=== PATIENT | female | born 1955 | race Caucasian/White ===

== ENCOUNTER 2017-05-03 06:21 | Emergency (ER) | payer MEDICARE, OTHER ==
[~2017-05-03] VITALS: Ht 152.4 cm; Wt 72.0 kg
[~2017-05-03 06:21] MED LIST: INSULIN 70/30; METO-448; MTF1000T; SIMV20TA2; [UNRECOGNIZED DRUG - CODE]
[2017-05-03 06:24] VITALS: Ht 152.4 cm; Wt 72.0 kg
[2017-05-03] MEDS ORDERED: SOD CHLORIDE 0.9% 1,000 ML IV STA (06:40)
[2017-05-03] MEDS ORDERED: ALBUTEROL 0.083% (NEB) 2.5 MG/3 ML AMP NEB STA ×2 (06:40→10:55)
[2017-05-03] MEDS ORDERED: IPRATROPIUM (NEB) 0.5 MG/2.5 ML AMP NEB STA ×2 (06:40→10:55)
--- NOTE | 2017-05-03 06:45 | ERD ---
ER Documentation Chief Complaint Date/Time DATE: 05/03/17 TIME: 06:42 Chief Complaint sob x 2 days HPI This is a 61-year-old female with a known history of insulin-dependent diabetes mellitus hypertension and high cholesterol that presents to the emergency department complaining of intermittent shortness of breath for the past 48 hours. The patient indicates she has had a tactile fever with shaking chills. She took Tylenol at 5 PM roughly 13 hours prior to arrival. Since then she states that the fever has resolved. She denies any night sweats or weight loss. She has had a nonproductive cough and smokes tobacco roughly 10 cigarettes a day. She indicates that yesterday evening while sleeping at roughly 10 PM she was awoken with more worsening shortness of breath while lying supine. She stated that her shortness of breath improved when she sat up. She has also been experiencing pleuritic chest pain but denies any chest pressure that radiates to the neck arm back or jaw. She denies any recent travel or prolonged immobilization. She denies any swelling of her lower extremities and no calf tenderness or muscle spasms. She denies any abdominal pain. She denies any emesis or diarrhea. ROS All systems reviewed and are negative except as per history of present illness. Medications Home Meds Reported Medications Insulin Glargine* (Lantus*) 100 Unit/Ml Soln, 50 UNIT SC QAM, #1 VIAL 05/03/17 Simvastatin (Simvastatin) 20 Mg Tablet, 20 MG PO QHS, #30 TAB 05/03/17 Aspirin* (Aspirin* Chew) 81 Mg Tab.chew, 81 MG PO DAILY, TAB.CHEW 05/03/17 Metoprolol Tartrate* (Lopressor*) 25 Mg Tab, 25 MG PO BID, #60 TAB 05/03/17 Discontinued Reported Medications Famotidine (Famotidine) 1 Gm Powder 03/31/14 Simvastatin (Simvastatin) 20 Mg Tablet 03/31/14 Metoprolol Tartrate* (Lopressor*) 25 Mg Tab 03/31/14 [Insulin 70/30] No Conflict Check 03/31/14 Metformin* (Glucophage*) 1,000 Mg Tablet 03/31/14 Allergies Allergies: Coded Allergies: No Known Allergy (Unverified , 03/31/14) PMhx/Soc Hx Cardiac Disorders: Yes (HTN) Hx Miscellaneous Medical Probl: Yes (DM) Hx Alcohol Use: No Hx Substance Use: No Hx Tobacco Use: No Physical Exam Vitals Vital Signs Date Time Temp Pulse Resp B/P Pulse Ox O2 Delivery O2 Flow Rate FiO2 05/03/17 09:17 84 29 146/62 99 Room Air 05/03/17 07:01 100 18 96 21 05/03/17 06:57 80 24 131/62 97 Room Air 05/03/17 06:24 99.2 84 18 130/60 97 Physical Exam Constitutional:Well-developed. Well-nourished. HEENT:Normocephalic. Atraumatic.Pupils were equal round reactive to light. Moist mucous membranes.No tonsillar exudates. Neck: No nuchal rigidity. No lymphadenopathy. No posterior cervical spine tenderness or step-offs. Respiratory: Not using accessory muscles of respiration.Lungs were clear to auscultation bilaterally. No rhonchi. No rales. Mild wheezing bilaterally on end auscultation Cardiovascular: Regular rate regular rhythm.No murmurs. No rubs were appreciated.S1, S2 normal. Distal pulses are palpable 2+ bilaterally. GI: Abdomen was soft. Nontender. Non Distended. No pulsatile abdominal masses or bruits. No rebound. No guarding. Bowel sounds were present and normal. Muscle skeletal: Full range of motion of both the upper and lower extremities bilaterally.Normal muscle tone.No assymetrical calf tenderness or swelling. Skin: No petechia, no purpura. No lesions on the palms or the soles of the feet. No maculopapular rash. NEURO: Patient was alert, awake, orientated x3.No facial droop. Gait observed and normal with no ataxia.Speech had regular rate and rhythm. No focal neurological deficits. Result Diagram: 05/03/17 0700 05/03/17 0700 Results 24 hrs Laboratory Tests Test 05/03/17 07:00 05/03/17 09:09 White Blood Count 15.510^3/ul Red Blood Count 4.9110^6/ul Hemoglobin 13.1g/dl Hematocrit 40.1% Mean Corpuscular Volume 81.7fl Mean Corpuscular Hemoglobin 26.7pg Mean Corpuscular Hemoglobin Concent 32.7g/dl Red Cell Distribution Width 13.3% Platelet Count 68971^3/UL Mean Platelet Volume 10.8fl Neutrophils % 83.5% Lymphocytes % 9.4% Monocytes % 6.4% Eosinophils % 0.0% Basophils % 0.2% Nucleated Red Blood Cells % 0.0/100WBC Neutrophils # (Manual) 12.910^3/ul Lymphocytes # 1.510^3/ul Monocytes # 1.010^3/ul Eosinophils # 0.010^3/ul Basophils # 0.010^3/ul Nucleated Red Blood Cells # 0.010^3/ul Prothrombin Time 13.8Sec Prothrombin Time Ratio 1.1 INR International Normalized Ratio 1.06 Activated Partial Thromboplast Time 36.0Sec D-Dimer 1906.38ng/ml D-Dimer Comment Sodium Level 138mmol/L Potassium Level 4.2mmol/L Chloride Level 98mmol/L Carbon Dioxide Level 24mmol/L Anion Gap 20 Blood Urea Nitrogen 15mg/dl Creatinine 0.80mg/dl Glucose Level 297mg/dl Calcium Level 8.7mg/dl Total Bilirubin 0.2mg/dl Direct Bilirubin 0.00mg/dl Indirect Bilirubin 0.2mg/dl Aspartate Amino Transf (AST/SGOT) 34IU/L Alanine Aminotransferase (ALT/SGPT) 46IU/L Alkaline Phosphatase 162IU/L Creatine Kinase 38IU/L Creatine Kinase Index 0.6 Creatinine Kinase MB (Mass) < 0.22ng/ml Troponin I < 0.012ng/ml B-Type Natriuretic Peptide 286PG/ML Total Protein 7.5g/dl Albumin 3.6g/dl Globulin 3.90g/dl Albumin/Globulin Ratio 0.92 Urine Color YELLOW Urine Clarity SLIGHTLY CLOUDY Urine pH 6.0 Urine Specific [place] 1.022 Urine Ketones 1+mg/dL Urine Nitrite POSITIVEmg/dL Urine Bilirubin NEGATIVEmg/dL Urine Urobilinogen 1+mg/dL Urine Leukocyte Esterase 2+Priscilla/ul Urine Microscopic RBC 5/HPF Urine Microscopic WBC 59/HPF Urine Squamous Epithelial Cells FEW/HPF Urine Bacteria FEW/HPF Urine Hemoglobin 2+mg/dL Urine Glucose 3+mg/dL Urine Total Protein 1+mg/dl Current Medications Medications (Trade) Dose Ordered Sig/Vitaliy Route PRN Reason Start Time Stop Time Status Last Admin Dose Admin Sodium Chloride (NS) 1,000 ml @ 1,000 mls/hr Q1H STAT IV 05/03/17 06:40 05/03/17 07:39 DC 05/03/17 07:07 Albuterol (Proventil 0.083% (Neb)) 5 mg ONCE STAT NEB 05/03/17 06:40 05/03/17 06:42 DC 05/03/17 06:52 Ipratropium [place] (Atrovent 0.02% (Neb)) 0.5 mg ONCE STAT NEB 05/03/17 06:40 05/03/17 06:42 DC 05/03/17 06:52 Methylprednisolone Sodium Succinate (Solu-Medrol) 125 mg ONCE ONCE IV 05/03/17 08:30 05/03/17 08:31 DC 05/03/17 08:32 IV Flush 10 ml 10 ml STK-MED ONCE .ROUTE 05/03/17 09:11 05/03/17 09:12 DC 05/03/17 09:35 Sodium Chloride 100 ml @ ud STK-MED ONCE .ROUTE 05/03/17 09:11 05/03/17 09:12 DC 05/03/17 09:35 Iohexol (Omnipaque) 100 ml @ ud STK-MED ONCE .ROUTE 05/03/17 09:11 05/03/17 09:12 DC 05/03/17 09:36 Albuterol (Proventil 0.083% (Neb)) 5 mg ONCE STAT NEB 05/03/17 10:55 05/03/17 10:57 DC Ipratropium [place] 0.5 mg 0.5 mg ONCE STAT NEB 05/03/17 10:55 05/03/17 10:57 DC Ceftriaxone Sodium (Rocephin) 50 ml @ 100 mls/hr ONCE ONCE IVPB 05/03/17 11:30 05/03/17 11:59 DC 05/03/17 12:04 Ketorolac Tromethamine (Toradol) 30 mg ONCE STAT IV 05/03/17 11:40 05/03/17 11:41 DC 05/03/17 12:04 Procedures/MDM The patient presented to the emergency department with shortness of breath. My differential diagnosis included but was not limited to upper airway obstruction , CHF, pulmonary embolism, cardiac ischemia, pneumonia, pneumothorax, anemia, drug overdose, pulmonary edema, COPD or asthma. The patient had IV access established by nursing staff was placed on a maintenance helper continuous pulse oximetry. The patient received a liter bolus of 0.9 normal saline. She was refusing any analgesic medication. She was given nebulizer treatments of albuterol and Atrovent. I did feel her symptoms could be exacerbated by an acute bronchitis and therefore she received IV Solu- Medrol. Chest radiograph showed atelectasis with no evidence of pneumonia. The patient had leukocytosis. 12 Lead EKG tracing ordered and reviewed by myself showed: Normal sinus rhythm of 74 bpm and no arrhythmia. TX interval normal. QRS duration normal. No ST segment elevation No ST segment depression. No changes consistent with acute ischemia. The patient also had hyperglycemia without ketosis. She has a known history of ske-evpxmho-rgoittqgu diabetes mellitus and was given IV fluids to correct the hyperglycemia The patient was a low pretest probability according to the well's criteria for pulmonary embolism. Therefore obtained a d-dimer.This was elevated and therefore obtained a CT angiogram which showed no evidence of pulmonary embolism. However I did appear to be some stranding of the kidneys consistent with pyelonephritis. The patient had a significant urinary tract infection. Given her symptoms she was treated for pyelonephritis given IV ceftriaxone. For pain the patient was given Toradol. She was also given a liter bolus of normal saline. I spoke with the patient at length about the possibility of being admitted for further IV antibiotics but she stated she would prefer to be discharged home as her partner is a nurse and she felt confident that she would be able to monitor for signs and symptoms that would warrant emergent return to the emergency department. The patient will be sent home with ciprofloxacin and Motrin for analgesic control. CT scan also showed emphysema which could have exacerbated her symptoms the patient had been treated in the emergency department for acute bronchitis. The patient was discharged home in fair condition. They were instructed to return to the emergency department at any time if there was any worsening of their condition. The patient stated they would follow up with their PCP in the next 24-48 hours to initiate a suitable medication regimen under the care of their PCP as well as to allow their PCP to monitor any drug reactions. The patient was discharged home with prescriptions after they gave informed consent to the new medication. They were also fully informed by myself on the adverse effects and adverse drug interactions in order to provide adequate safeguards to prevent possible adverse reactions to medications. Departure Diagnosis: Primary Impression: Acute bronchitis Bronchitis organism: unspecified organism Qualified Code: J20.9 - Acute bronchitis, unspecified organism Additional Impressions: Hyperglycemia without ketosis Pyelonephritis Condition: FLOR Thorne May 03, 2017 06:45
--- NOTE | 2017-05-03 07:06 | RADRPT ---
PROCEDURE: CHEST - 1 VIEW CLINICAL INDICATION: 61-year-old female with chest pain. TECHNIQUE: A single frontal AP portable view of the chest was performed. The images were reviewed on a PACS workstation. COMPARISON: None. FINDINGS: The cardiomediastinal silhouette is within normal limits. There is a shallow inspiration. There is minimal bibasilar subsegmental atelectasis. There is no evidence for an infiltrate. There is no e vidence for congestive heart failure. There is no evidence for pneumothorax. The osseous structures are intact. IMPRESSION: Shallow inspiration with minimal bibasilar subsegmental atelectasis. .Hemant Foster MD, MD Date Time Electronically viewed and signed by .Hemant Foster MD, on 05/03/2017 07:06 .Neftali
[2017-05-03 07:36] LABS: BASOPHILS % 0.2 % (0.0-2.0); HEMATOCRIT 40.1 % (37.0-47.0); HEMOGLOBIN 13.1 g/dl (12.0-16.0); LYMPHOCYTES # 1.5 10^3/ul (0.8-2.9); LYMPHOCYTES % 9.4 % (15.0-51.0); MEAN CORPUSCULAR HEMOGLOBIN 26.7 pg (29.0-33.0); MEAN CORPUSCULAR HGB CONC 32.7 g/dl (32.0-37.0); MEAN CORPUSCULAR VOLUME 81.7 fl (82.0-101.0); MEAN PLATELET VOLUME 10.8 fl (7.4-10.4); MONOCYTES % 6.4 % (0.0-11.0); NEUTROPHILS % 83.5 % (39.0-77.0); PLATELET COUNT 280 10^3/UL (140-415); RED BLOOD COUNT 4.91 10^6/ul (4.20-5.40); RED CELL DISTRIBUTION WIDTH 13.3 % (11.5-14.5); WHITE BLOOD COUNT 15.5 10^3/ul (4.8-10.8)
[2017-05-03 08:00] LABS: ALANINE AMINOTRANSFERASE 46 IU/L (13-69); ALBUMIN 3.6 g/dl (3.3-4.9); ALBUMIN/GLOBULIN RATIO 0.92; ALKALINE PHOSPHATASE 162 IU/L (42-121); ANION GAP 20 (8-16); ASPARTATE AMINO TRANSFERASE 34 IU/L (15-46); BILIRUBIN,INDIRECT 0.2 mg/dl (0-1.1); BILIRUBIN,TOTAL 0.2 mg/dl (0.2-1.3); BLOOD UREA NITROGEN 15 mg/dl (7-20); CALCIUM 8.7 mg/dl (8.4-10.2); CARBON DIOXIDE 24 mmol/L (21-31); CHLORIDE 98 mmol/L (97-110); CREATINE KINASE 38 IU/L (23-200); GLUCOSE 297 mg/dl (70-220); POTASSIUM 4.2 mmol/L (3.5-5.1); SODIUM 138 mmol/L (135-144); TOTAL PROTEIN 7.5 g/dl (6.1-8.1)
[2017-05-03 08:11] LABS: B-TYPE NATRIURETIC PEPTIDE 286 PG/ML (0-125)
[2017-05-03 08:13] LABS: INR 1.06; PROTIME 13.8 Sec (12.2-14.2); PT RATIO 1.1
[2017-05-03 08:15] LABS: D-DIMER 1906.38 ng/ml (<460)
[2017-05-03 08:18] LABS: CK-MB < 0.22 ng/ml (0.0-2.4); TROPONIN-I < 0.012 ng/ml (0.00-0.12)
[2017-05-03] MEDS ORDERED: METHYLPREDNISOLONE 125 MG INJ IV ONE (08:30)
[2017-05-03] MEDS ORDERED: IOHEXOL 100 ML ONE (09:11)
[2017-05-03] MEDS ORDERED: SOD CHLORIDE 0.9% 100 ML ONE (09:11)
--- NOTE | 2017-05-03 09:53 | RADRPT ---
PROCEDURE: CTA Chest - Pulmonary embolism protocol with 3D reconstructions. CLINICAL INDICATION: Shortness of breath. TECHNIQUE: CT angiographic evaluation of the pulmonary arteries were performed following the admini stration of intravenous contrast. Post-processing 3D MIP reconstructions were performed on the PACS workstation. Intravenous contrast: 100 cc of Omnipaque 300 Radiation dose: CTDIvol (mGy) = 8.5, 8.4; total DLP mGy-cm = 301. One or more of the following radiation dose techniques were used: -Automated exposure control. -Adjust of the mA and/or kV according to patient size. -Use of iterative reconstruction technique. COMPARISON: None. FINDINGS: Satisfactory evaluation of the pulmonary arteries demonstrate no filling defect to the level of the segmental branches. There is no evidence of aortic dissection or aneurysm. No aortic aneurysm or d issection. Mild upper lobe predominant emphysema. There is a 3 mm micro-nodule in the right upper lobe. No fo [place] consolidation, pneumothorax, or pleural effusions. Normal heart size without pericardial effusio n. Mild left anterior descending coronary and thoracic aortic calcifications. Retained secretions and/or aspirate identified in the trachea. Incidental hypoenhancement involving the upper pole of the left kidney IMPRESSION: Technically satisfactory CT pulmonary angiogram without evidence of pulmonary thromboembolic disease to the segmental arterial level. Mild emphysema with nonspecific 3 mm micro-nodule identified in the right upper lung zone. Focal hypoenhancement involving the upper pole of the partially visualized left kidney with surround ing perinephric inflammation suggesting pyelonephritis. Recommend confirmation with urinalysis. RPTAT: EE .Johnathon Gaxiola MD, Date Time Electronically viewed and signed by .Johnathon Gaxiola MD, on 05/03/2017 09:58 .C/
[2017-05-03 10:28] LABS: ADD UMIC YES; UR ASCORBIC ACID NEGATIVE (NEGATIVE); UR BACTERIA FEW /HPF (NONE SEEN); UR BILIRUBIN (Dip) NEGATIVE (NEGATIVE); UR BLOOD (Dip) 2+ mg/dL (NEGATIVE); UR CLARITY SLIGHTLY CLOUDY (CLEAR); UR COLOR YELLOW (YELLOW); UR GLUCOSE (Dip) 3+ mg/dL (NEGATIVE); UR KETONES (Dip) 1+ mg/dL (NEGATIVE); UR LEUKOCYTE ESTERASE (Dip) 2+ Leu/ul (NEGATIVE); UR NITRITE (Dip) POSITIVE (NEGATIVE); UR RBC 5 /HPF (0-5); UR SPECIFIC GRAVITY (Dip) 1.022 (1.003-1.030); UR SQUAMOUS EPITHELIAL CELL FEW /HPF (FEW); UR TOTAL PROTEIN (Dip) 1+ mg/dl (NEGATIVE); UR UROBILINOGEN (Dip) 1+ mg/dL (NEGATIVE)
[2017-05-03] MEDS ORDERED: METO-448 PO (11:03)
[2017-05-03] MEDS ORDERED: ASPI81TA3 PO (11:04)
[2017-05-03] MEDS ORDERED: SIMV20TA2 PO (11:05)
[2017-05-03] MEDS ORDERED: LANT3I SC (11:06)
[2017-05-03] MEDS ORDERED: CEFTRIAXONE 1 GM/50 ML (PMX) 50 ML IVPB ONE (11:30)
[2017-05-03] MEDS ORDERED: KETOROLAC 30 MG INJ IV STA (11:40)
[2017-05-03] MEDS ORDERED: IPRA4AER INHALATION (12:25)
[2017-05-03] MEDS ORDERED: IBUP-1542 PO (12:25)
[2017-05-03] MEDS ORDERED: CIPR500T4 PO (12:25)
[2017-05-03 12:39] VITALS: BP 132/60; PULSE 73; RESP 29
== END 2017-05-03 16:01 | disposition home or self-care (01) ==
LOC: E/R 06:21
DX: J20.9 Acute bronchitis, unspecified (principal); E11.65 Type 2 diabetes mellitus with hyperglycemia; I10 Essential (primary) hypertension; Z79.4 Long term (current) use of insulin; Z79.82 Long term (current) use of aspirin; Z79.84 Long term (current) use of oral hypoglycemic drugs
CPT/HCPCS: 36415; 71010; 71275; 80053; 81001; 82550; 82553; 83880; 84484; 85025; 85378; 85610; 85730; 87086; 93005; 94664; 96374; 96375; 99285; J0696; J1885; J7030; Q9967

== ENCOUNTER 2017-12-27 12:41 | Emergency (ER) | END 2017-12-27 14:34 | disposition home or self-care (01) ==